=== PATIENT | male | born 1945 | race Caucasian/White ===

== ENCOUNTER → 2017-03-20 | Day surgery (SDC) | payer SELFPAY ==
[2017-03-13 13:38] LABS: BASOPHILS % 0.2 % (0.0-1.0); EOSINOPHILS % 0.8 % (0.0-6.0); HEMATOCRIT 39.2 % (38.2-49.6); HEMOGLOBIN 13.5 g/dL (14.0-18.0); LYMPHOCYTES # (AUTO) 1.2 (1.0-3.2); LYMPHOCYTES % 24.4 % (18.0-39.1); MEAN CORPUSCULAR HGB CONC 34.4 g/dL (31-35); MEAN CORPUSCULAR VOLUME 92.9 fL (81-99); MONOCYTES # (AUTO) 0.3 (0.2-0.8); MONOCYTES % 6.7 % (4.4-11.3); NEUTROPHILS # (AUTO) 3.2 (2.1-6.9); NEUTROPHILS % 67.7 % (38.7-80.0); PLATELET COUNT 212 x10e3/uL (140-360); RED BLOOD COUNT 4.22 x10e6/uL (4.3-5.7); RED CELL DISTRIBUTION WIDTH 12.8 % (11.7-14.4)
[2017-03-13 13:54] LABS: ANION GAP 12.9 mmol/L (8-16); BLOOD UREA NITROGEN 12 mg/dL (7-26); BUN/CREATININE RATIO 15 (6-25); CARBON DIOXIDE 26 mmol/L (22-29); CHLORIDE 106 mmol/L (98-107); EST GLOMERULAR FILTRATION RATE > 60 ML/MIN (60-); GLUCOSE 102 mg/dL (74-118); POTASSIUM 3.9 mmol/L (3.5-5.1); SODIUM 141 mmol/L (136-145)
--- NOTE | 2017-03-13 15:30 | Diagnostic Imaging Report ---
PROCEDURE: Frontal and lateral views of the chest. COMPARISON: None. INDICATIONS: PRE OPERATIVE CHEST X-RAY FOR PENILEPROSTHESIS IMPLANTATION FINDINGS: Lines/tubes: None. Lungs: Calcified granulomata There is no evidence of pneumonia or pulmonary edema. Pleura: There is no pleural effusion or pneumothorax. Heart and mediastinum: The heart and the mediastinum are normal. Bones: No acute bony abnormality. IMPRESSION: 1. No acute thoracic abnormality. Jocelyn Singh M.D. Dictated by: Jocelyn Singh M.D. on 03/13/2017 at 15:39 Electronically approved by: Jocelyn Singh M.D. on 03/13/2017 at 15:39
[~2017-03-20] MED LIST: BACITRACIN 50,000 UNIT VIAL ONE; CEFTRIAXONE SOD 1 GM VIAL ONE; DEXAMETHASONE SOD PHOS INJ 4 MG/ML VIAL ONE; FENTANYL CITRATE/PF 100MCG/2 ML INJ ONE; LIDOCAINE HCL 1% LOCAL INJ 20 ML VIAL ONE; LIDOCAINE HCL 2% LOCAL INJ 5 ML SDV VIAL INJ ONE; MIDAZOLAM HCL 2 MG/2 ML VIAL ONE; ONDANSETRON HCL INJ 2 MG/ML VIAL ONE; PROPOFOL IV EMULSION 10 MG/ML 20 ML VIAL ONE; SEVOFLURANE INHAL SOLN 250 ML PEN BTL ONE
--- OUTSIDE RECORDS SUMMARY | 2017-03-20 09:07 | XMS REPORT ---
Author Author [facility] Address Unknown Phone Unavailable Care Team Providers Care Piece Jobber Name Role Phone KEVON SAENZ Unavailable Unavailable Problems This patient has no known problems. Allergies, Adverse Reactions, Alerts This patient has no known allergies or adverse reactions. Medications This patient has no known medications. Results Test Description Test Time Test Comments Text Results Atomic Results Result Comments CHEST 2 VIEWS [place] [address] Patient Name: SAMEER NIX MR #: [id number] : 1945 Age/Sex: 71/M Req #: [id number] Adm Physician: Ordered by: KEVON SAENZ MD Report #: [id number] Location: OR Room/Bed: Procedure: [id number] DX/CHEST 2 VIEWS Exam Date: 03/13/17 Exam Time: 1300 REPORT STATUS: Signed PROCEDURE: Frontal and lateral views of the chest. COMPARISON: None. INDICATIONS: PRE OPERATIVE CHEST X- RAY FOR PENILEPROSTHESIS IMPLANTATION FINDINGS: Lines/tubes: None. Lungs: Calcified granulomata There is no evidence of pneumonia or pulmonary edema. Pleura: There is no pleural effusion or pneumothorax. Heart and mediastinum: The heart and the mediastinum are normal. Bones: No acute bony abnormality. IMPRESSION: 1. No acute thoracic abnormality. Jocelyn Banuelos M.D. Dictated by: Jocelyn Banuelos M.D. on 03/13/2017 at 15:39 Electronically approved by: Jocelyn Banuelos M.D. on 03/13/2017 at 15: 39 Dictated By: SURESH BANUELOS MD, MD [id number] Transcribed By: JEREMIAS on 03/13/17 1539 COPY TO: KEVON SAENZ MD
--- NOTE | 2017-03-27 09:41 | Operative Report ---
DATE OF PROCEDURE: March 20, 2017 PREOPERATIVE DIAGNOSIS: Post prostatectomy and erectile dysfunction. POSTOPERATIVE DIAGNOSIS: Post prostatectomy and erectile dysfunction. OPERATIVE PROCEDURE PERFORMED: Placement of inflatable genitourinary penile prosthesis. ANESTHESIA: General anesthesia. ESTIMATED BLOOD LOSS: 50 mL. INDICATIONS: Mr. Eugenio Bolton is a 71-year-old gentleman with a history of prostate cancer treated with radiation therapy, who presently has undetectable PSA. He does, however, have significant erectile dysfunction, which has failed conservative management. He now presents for definitive surgical management of this problem. PROCEDURE IN DETAIL: The patient was brought into the operating room and placed in the supine position. After administration of general anesthesia, was prepped and draped in the usual sterile fashion. A Maldonado catheter was placed. Once the bladder was drained, this was clamped. A penoscrotal incision was made sharply, and dissection was carried out through the layers of the penis. The cavernosa bodies were encountered on the right and left sides. The left cavernosa body was incised sharply using the electrocautery device. The cavernosa bodies were then dilated up to 12-[place] both proximally and distally. The DMI was used to measure the length of the corporal bodies, which ultimately measured 19 cm. A similar procedure was performed on the left corporal body. Again, this was dilated up to 12, and then measured at 19 cm. The AMS 700 was then prepared on the back table. The cavernosa cylinders placed without difficulty using a Shaq needle and exiting the penile glans. Both were noted to fit well. The cavernosa bodies were then closed with a PDS stitch taking great care to prevent injury to the corporal bodies or the cylinders. The pump was then placed in the subdartos pocket at the inferior most portion of the scrotum. This pocket was then closed using an interrupted Vicryl suture. The area was copiously irrigated with antibiotic solution. On the right, an inguinal incision was made sharply and dissection was taken down to the layers of the fascia. A horizontal incision was made on the anterior rectus fascia, and a subrectus pouch was created. A flat reservoir was placed in this location and filled with 60 mL of sterile water. The tube was noted to exit the fascia inferior to the incision. The fascial incision was then closed using a running Vicryl suture. Once everything was filled appropriately, the tubes between the reservoir and the pump were closed using the method. The prosthesis was then filled, and was noted to fill and empty without difficulty. It was left partially full and locked in this position. The penoscrotal and inguinal wounds were then closed in layers with the skin being closed with a running Monocryl stitch. Both wounds were then cleaned, dried, and covered with Steri-Strips and Tegaderm dressing. Anesthesia was reversed. The Maldonado catheter was removed. The patient was taken to the postanesthesia care unit in good condition. Of note, the needle and instrument count were correct at the conclusion of the case. Job#: [id number] JOEY
== END | disposition home or self-care (01) ==
LOC: OR 09:05
PROVIDERS: ATTEND Urology
DX: N52.9 Male erectile dysfunction, unspecified (principal); Z85.46 Personal history of malignant neoplasm of prostate; Z90.79 Acquired absence of other genital organ(s); N39.0 Urinary tract infection, site not specified; Z01.810 Encounter for preprocedural cardiovascular examination; Z01.812 Encounter for preprocedural laboratory examination; Z01.818 Encounter for other preprocedural examination
CPT/HCPCS: 54405; C1813; 36415; 71046; 80048; 85025; 93005; J0696; J1100; J2001; J2250; J2405